=== PATIENT | female | born 1985 | race African-American/Black ===

== ENCOUNTER 2017-06-27 15:36 | Emergency (ER) | payer SELFPAY ==
[2017-06-27] MEDS ORDERED: Ibuprofen 200 MG TAB ONE (17:58)
== END 2017-06-27 19:17 | disposition home or self-care (01) ==
LOC: ERS 15:36
DX: J11.1 Influenza due to unidentified influenza virus with other respiratory manifestations (principal)
CPT/HCPCS: 87081; 87430; 87804; 99283

== ENCOUNTER 2018-10-19 13:43 | Emergency (ER) | payer SELFPAY ==
--- NOTE | 2018-10-19 14:40 | RAD ---
PA chest and left RIBS: 4 views. Indications left rib pain. Lungs are clear. There is a displaced fracture involving the lateral left ninth rib. No other rib fracture identified. IMPRESSION: Fracture lateral left ninth rib
== END 2018-10-19 15:00 | disposition home or self-care (01) ==
LOC: ERS 13:43
DX: S22.32XA Fracture of one rib, left side, initial encounter for closed fracture (principal); W19.XXXA Unspecified fall, initial encounter